=== PATIENT | male | born 1945 | race Caucasian/White ===

== ENCOUNTER → 2020-07-02 08:28 | Outpatient (BNVA) | payer MEDICARE, OTHER, SELFPAY | PROVIDERS: Family Provider Internal Medicine; PCP Internal Medicine; Referring Provider Nurse Practitioner; Visit Provider Orthopaedic Surgery | DX: M25.562 Pain in left knee (principal) | CPT/HCPCS: 73560; 73565 ==

== ENCOUNTER → 2020-07-25 08:38 | Outpatient (BNVA) | payer MEDICARE, OTHER, SELFPAY | PROVIDERS: Family Provider Internal Medicine; PCP Internal Medicine; Visit Provider Urology | DX: R39.11 Hesitancy of micturition (principal); R97.20 Elevated prostate specific antigen [PSA]; N40.1 Benign prostatic hyperplasia with lower urinary tract symptoms | CPT/HCPCS: 81003; 84153 ==

== ENCOUNTER → 2020-11-21 10:39 | Outpatient (BNVA) | payer MEDICARE, OTHER, SELFPAY | PROVIDERS: Family Provider Internal Medicine; PCP Nurse Practitioner; Visit Provider Urology | DX: R97.20 Elevated prostate specific antigen [PSA] (principal); N40.1 Benign prostatic hyperplasia with lower urinary tract symptoms | CPT/HCPCS: 81003; G0103 ==

== ENCOUNTER → 2021-11-28 09:07 | Outpatient (BNVA) | payer MEDICARE, OTHER, SELFPAY | PROVIDERS: Family Provider Internal Medicine; PCP Nurse Practitioner; Visit Provider Urology | DX: N40.1 Benign prostatic hyperplasia with lower urinary tract symptoms (principal); R97.20 Elevated prostate specific antigen [PSA]; N52.9 Male erectile dysfunction, unspecified; N48.1 Balanitis; N47.5 Adhesions of prepuce and glans penis | CPT/HCPCS: 51741; 51798; 81003; 84153; 99214 ==

== ENCOUNTER 2022-05-01 07:04 | Outpatient (CLI) | payer MEDICARE, OTHER, SELFPAY ==
[2022-05-01 08:07] LABS: Prostate Specific AG Urology 4.26 ng/mL (0-4)
== END 2022-05-01 07:05 | disposition home or self-care (01) ==
PROVIDERS: PCP Nurse Practitioner; Visit Provider Urology
DX: R97.20 Elevated prostate specific antigen [PSA] (principal); N40.1 Benign prostatic hyperplasia with lower urinary tract symptoms; N48.1 Balanitis; N47.5 Adhesions of prepuce and glans penis; N52.9 Male erectile dysfunction, unspecified
CPT/HCPCS: 51798; 81003; 84153; 99213

== ENCOUNTER → 2022-12-24 08:39 | Outpatient (BNVA) | payer MEDICARE, OTHER, SELFPAY | PROVIDERS: PCP Nurse Practitioner; Visit Provider Specialist | DX: M17.12 Unilateral primary osteoarthritis, left knee (principal) | CPT/HCPCS: 73560; 73565; 99204 ==

== ENCOUNTER 2023-01-05 15:06 | Outpatient (CLI) | payer MEDICARE, OTHER, SELFPAY ==
--- NOTE | 2023-01-05 15:30 | CT_ITS ---
WS: [id number] CT LEFT KNEE, NONCONTRAST TECHNIQUE: Noncontrast CT of the LEFT knee to include the LEFT hip and ankle. [facility] CLINICAL INFORMATION: left knee pain COMPARISON: None. DLP: 993.[address] scans at [facility] use at least one of these dose optimization techniques: automated e xposure control; mA and/or kV adjustment per patient size (includes targeted exams where dose is matc hed to clinical indication); or iterative reconstruction. FINDINGS: Prior postoperative changes RIGHT TKA. Advanced osteoarthritis LEFT knee with [id number] articulati on medial joint compartment. Small suprapatellar effusion. Hypertrophic patella. Hypertrophic changes along the joint line. Normal sigmoid colon. Sigmoid diverticulosis. Diffuse bladder wall thickening likely due to bladder outlet obstruction. Enlarged prostate measuring 5.3 CM. Recommend correlation P SA. Mild degenerative narrowing both hips. CT/CT knee LT [facility] IMPRESSION: Images obtained for preoperative purposes.
== END 2023-01-05 15:07 | disposition home or self-care (01) ==
LOC: RAD 15:14
PROVIDERS: PCP Nurse Practitioner; Visit Provider Specialist
DX: Z01.818 Encounter for other preprocedural examination (principal); M17.12 Unilateral primary osteoarthritis, left knee
CPT/HCPCS: 73700

== ENCOUNTER 2023-01-12 08:11 | Outpatient (CLI) | payer MEDICARE, OTHER, SELFPAY ==
[2023-01-12 08:43] LABS: Add Urine Microscopic? NO; Charge for UA Resulting for Rev
[2023-01-12 08:46] LABS: Basophils # 0.1 10^3/uL (0.0-0.1); Basophils % 0.9 %; Eosinophils # 0.2 10^3/uL (0.0-0.8); Eosinophils % 4.2 %; Hematocrit 39.6 % (42.0-52.0); Lymphocytes # 1.6 10^3/uL (0.8-4.8); Lymphocytes % 27.4 %; Mean Corpuscular HGB Conc 32.8 g/dL (30.0-36.0); Mean Corpuscular Hemoglobin 30.2 pg (28.0-34.0); Mean Corpuscular Volume 92.1 fl (80-94); Mean Platelet Volume 10.4 fL (7.4-10.4); Monocytes # 0.5 10^3/uL (0.2-0.9); Monocytes % 8.5 %; Neutrophils # 3.32 10^3/uL (1.8-7.7); Neutrophils % 58.6 %; Nucleated Red Blood Cells % 0 %; Platelet Count 208 10^3/cmm (130-400); Red Cell Distribution Width 14.4 % (12.1-15.1); White Blood Count 5.7 10^3/uL (4.0-10.0)
[2023-01-12 08:58] LABS: Bilirubin Urine Neg (Negative); Blood Urine Neg (Negative); Glucose Urine UA Norm (Normal); Ketones Urine Negative (Negative); Leukocyte Esterase Urine Negative (Negative); Nitrate Urine Negative (Negative); Protein Urine Neg (Negative); Urine Appearance Clear (CLEAR); Urine Color Yellow (Yellow); Urobilinogen Urine Norm (Negative); pH Urine 5 (5-7)
[2023-01-12 09:14] LABS: Alanine Aminotransferase 15 U/L (0-41); Albumin Level 3.7 g/dL (3.5-5.2); Alkaline Phosphatase 65 U/L (40-130); Anion Gap 14.2 (5-19); Aspartate Amino Transferase 17 U/L (0-40); Blood Urea Nitrogen 20 mg/dL (8-23); Calcium 8.6 mg/dL (8.5-10.5); Carbon Dioxide 24 mmol/L (22-29); Chloride 102 mmol/L (98-107); Globulin 2.6 g/dL (1.3-4.6); Glucose 153 mg/dL (65-115); Osmolality Calculated 288 mOsm/kg (285-295); Potassium 4.2 mmol/L (3.5-5.1); Sodium 136 mmol/L (136-145); Total Bilirubin 0.3 mg/dL (0.15-1.2); Total Protein 6.3 g/dL (6.6-8.7)
== END 2023-01-12 08:12 | disposition home or self-care (01) ==
PROVIDERS: Visit Provider Specialist
DX: M17.12 Unilateral primary osteoarthritis, left knee (principal)
CPT/HCPCS: 36415; 80053; 81003; 85025

== ENCOUNTER → 2023-01-14 14:08 | Outpatient (BNVA) | payer MEDICARE, OTHER, SELFPAY | PROVIDERS: Visit Provider Specialist | DX: M17.12 Unilateral primary osteoarthritis, left knee (principal) | CPT/HCPCS: 99213 ==

== ENCOUNTER 2023-01-26 09:54 | Observation (INO) | payer MEDICARE, OTHER, SELFPAY ==
[2023-01-26] VITALS (17 sets, daily range): BP systolic 97–161; BP diastolic 44–81; PULSE 55–88; RESP 10–17; TEMP 36.1–36.7; O2SAT 93–99
[2023-01-26] MEDS: acetaminophen 1,000 MG/100 ML PIGGYBACK 400 MG IV ×3 (06:28→22:47)
[2023-01-26] MEDS: CELEcoxib 200 mg Capsule 400 MG PO (06:28)
[2023-01-26] MEDS: gabapentin 300 mg Capsule PO (06:28)
[2023-01-26] MEDS: sodium chloride 0.9% 1,000 ML 30 ML IV (06:29)
--- NOTE | 2023-01-26 06:55 | W.PM.OPSUD ---
Surgery/Procedure H&P Update DATE OF PROCEDURE: January 26, 2023 DATE H&P PERFORMED: 01/21/23 H&P UPDATE INFORMATION: I have reviewed H&P completed within last 30 days, I have examined patient prior to procedure, No changes to prior documentation and H&P is in [facility] EMR on date indicated PLANNED PROCEDURE: Operation Date: 01/26/23 07:00 Proposed Procedures p LEFT TOTAL KNEE ARTHROPLASTY WITH STACY GUIDANCE 36699, M17.10(Left) - Helene Castillo MD Related Problem List Diagnoses (1) Primary osteoarthritis of left knee:
[2023-01-26] MEDS: ceFAZolin 2,000 MG in sodium chloride 0.9% (plus) 50 ML 100 MG IV ×3 (07:00→22:47)
--- NOTE | 2023-01-26 07:45 | ANES.PREANE2 ---
Pre-Anesthetic Assessment Height/Weight: Height 1.75 m Weight 87.09 kg Temp Pulse Resp BP Pulse Ox O2 Del Method 97.2 F L 55 L 16 141/81 98 Room Air 01/26/23 05:46 01/26/23 05:46 01/26/23 05:46 01/26/23 05:46 01/26/23 05:46 01/26/23 06:15 Operation Date: 01/26/23 07:00 Proposed Procedures p LEFT TOTAL KNEE ARTHROPLASTY WITH STACY GUIDANCE 68471, M17.10(Left) - Helene Castillo MD Familial anesthetic complications: none Was Beta Luba taken within 24 hours: N/A Was Clonidine taken within 24 hours: N/A Last intake: Intake Last Liquid Date 01/25/23 Last Liquid Time 21:00 Last Solid Date 01/25/23 Last Solid Time 19:00 Social No alcohol and No tobacco Exam alert, oriented x 3, clear to auscultation bilaterally and regular rate & rhythm Airway Submandibular: within normal limits Cervical ROM: within normal limits Mallampati: Class I Dentition: false Musc/skel Osteoarthritis/DJD Anesthetic Plan ASA status: 2 Anesthesia: General and Regional (specify below) (left adductor blk) Medications/Allergies Home Medications Medication Instructions Recorded Confirmed Last Taken Type aspirin 81 mg tablet,delayed 81 mg PO DAILY 07/02/20 01/26/23 01/14/23 History release multivitamin-ferrous 1 tab PO DAILY 07/02/20 01/26/23 01/21/23 History fumarate-folic acid 18 mg-400 mcg tablet (Centrum Complete) omega-3 fatty acids 1,000 mg 1,000 mg PO DAILY 07/02/20 01/26/23 01/21/23 History capsule (Fish Oil Concentrate) naproxen sodium 220 mg tablet 220 mg PO BID PRN Pain 07/25/20 01/21/23 01/20/23 History (Aleve) tadalafil 20 mg tablet 20 mg PO DAILY PRN sexual activity 05/10/21 01/26/23 Unknown Rx #20 tabs tamsulosin 0.4 mg capsule See Rx Instructions .Route 09/26/22 01/26/23 01/20/23 Rx .COMPLEX #180 caps Allergies Allergy/AdvReac Type Severity Reaction Status Date / Time No Known Allergies Allergy Verified 01/21/23 10:49 Current Medications Generic Name Dose Route Start Last Admin Trade Name Gill PRN Reason Stop Dose Admin Sodium Chloride 1,000 mls @ 30 mls/hr 01/26/23 06:00 01/26/23 06:29 Sodium Chloride 0.9% IV 01/27/23 05:59 30 mls/hr .Q24H CURTIS Administration PFSH Anesthesia Medical History BPH loc w urin obs/LUTS Elevated PSA Erectile dysfunction Family hx of prostate cancer Surgical History History of arthroscopy of knee right History of total knee replacement (TKR) right [address] Castillo Family History (Updated 01/21/23 @ 10:48 by Shon Dasilva NP) Mother , AT AGE 19 [place] Father , UNKNOWN No problems noted. Denies family history of Clotting disorder Anesthesia complication Bleeding disorder Social History (Updated 01/21/23 @ 10:48 by Shon Dasilva NP) Smoking and tobacco status: former smoker Quit status (tobacco): has quit using tobacco Former quit date comment: 30 yrs ago Alcohol intake: current Alcohol intake frequency: holidays/special occasions only Substance/Drug Use: never Marital status: Current occupational status: retired Data Anesthesia Cardiac Studies: No Data to Display Anesthesia Procedures Nerve Block Nerve Block 1: Main Anesthesia: general anesthesia Time Out Performed: Yes Consent: requested by attending/covering physician, from patient, risks and benefits reviewed and patient agrees to proceed Nerve block location: adductor canal (left) Anesthesia monitors applied: pulse oximetry, EKG, BP cuff and oxygen Nerve block position: supine Anesthetic Used: ropivicaine 0.5% Amount of anesthesia used (mL): 20 Ultrasound used to: recognize landmarks Nerve Stimulator Used?: No Interscalene/Femoral BLK: 4 stimuplex 21 g needle used for position and inplane approach Injection: neg aspiration of heme Patient Tolerated Procedure: well Complications: none
[2023-01-26] MEDS: ceFAZolin 1,000 mg SDV 2000 MG IRRIGATION (07:51)
[2023-01-26] MEDS: vancomycin 1,000 MG SDV 1000 MG XX (07:52)
--- NOTE | 2023-01-26 10:07 | PM.OP ---
Operative Report Date of procedure: January 26, 2023 Pre-op diagnosis: Primary osteoarthritis left knee Post-op diagnosis: same Post-op diagnosis: Primary osteoarthritis left knee Post-op findings: Severe degenerative osteoarthritis of the left knee with osteophytes and complete denudement of cartilage. Procedure done: Left total knee arthroplasty with Rober guidance Implants: The Heriberto total knee system with a size 6 triathlon beaded cruciate retaining femur left, a triathlon titanium tibial component size 6 beaded, a triathlon X3 tibial bearing CS insert size 6 X 11 mm and a beaded triathlon titanium asymmetric patella size 38 x 11 mm Pathology: none sent Surgeon: Helene Castillo Tank Maker Wood: [facility] operating room technicians Anesthesia: General (Intubated, ASA 2) Estimated blood loss (mL): 100 Tourniquet time (min): 0 (No tourniquet) IV fluids (mL): 1,500 Urine output (mL): 100 Complications: None Findings: Severe degenerative osteoarthritis left knee with varus deformity Condition: stable Disposition: PACU (Then to floor for postoperative rehabilitation and pain management) Brief History: Ramses Patino is a 77-year-old gentleman who previously underwent right total knee arthroplasty by me in June 2016. He presented to the clinic complaining of limitations in activities of daily living and severe left knee pain. After discussion, the patient wished to proceed with left total knee arthroplasty. Patient states that his left knee has been bothering him for several years.? Patient rated his pain at 5/10 in clinic. Patient states that pain inhibits him from being able to walk long distances or ambulating stairs freely. Procedure: The patient was brought to the operating theater, and after undergoing general anesthesia, intubated, ASA 2, as well as an adductor canal block, the left lower extremity was prepped with Dura-Prep and draped in usual fashion following placement of a tourniquet high on the leg. The leg was then draped free.? Tourniquet was not elevated during the case.? A surgical pause was performed, and at the time of the surgical pause, we confirmed the site and side of surgery. Additionally, we confirmed the appropriate and timely administration of preoperative antibiotics, Ancef 2 g and Transexemic acid 1 g.? The availability of equipment was confirmed, and the patient's identity was verbalized as well.? An additional transexemic acid 1 g will be given on the floor as well. Following the surgical pause, an incision was made centering over the patella continuing proximally and distally as necessary to allow access to the knee joint. Dissection continued through skin and soft tissues using a scalpel. Hemostasis was obtained using electrocautery. The skin incision was followed by a median parapatellar arthrotomy. The leg was extended and the patella was able to be displaced laterally.? Appropriate arrays and markers were placed in appropriate position for use of the Rober.? Preoperative planning had been accomplished and was discussed in detail with the [facility] loss control representative.? Intraoperative mapping of the femur and tibia was accomplished after the arrays were placed.? Internal markers were also placed.? Once we had accomplished the Rober mapping, we began the appropriate resections for placement of the prosthesis.? The plan was for a cruciate retaining right total knee arthroplasty. Once appropriate mapping had been accomplished, retraction was established using manual retraction by surgical technicians and also the Rober leg positioner and retractors.? The knee was evaluated.? There was significant osteoarthritic change with significant osteophyte formation a significant varus deformity.? Appropriate bone resection was accomplished using the Rober.? The femur was sized to a size 6.? Following femoral cuts, attention was directed to the tibia.? Osteophytes were removed prior to this portion of the procedure.? We had performed a medial release at the beginning of the procedure to allow for placement of the array and to allow for better planning with flexion and extension adjustments per Rober programming.? Proximal tibia was evaluated, and it was felt that appropriate size for the tibia was a size 6.? Tray was noted to fit nicely with good coverage.? Rim fit was accomplished with the size 6. A trial reduction was accomplished after osteophytes have been removed as well as the medial and lateral menisci.? We had removed the anterior cruciate ligament at the beginning of the case and preserved the posterior cruciate ligament.? Trial reduction was accomplished with a size 6 femoral cruciate retaining component and a size 6 CS tibial bearing insert which was 9 mm in thickness initially with subsequent trial implant increased to a size 10 mm.? Final insert was an 11 mm implant.? Alignment was felt to be appropriate as well.? Trial components were removed after the femur had been drilled.? Prior to removal of the tibial tray which had been pinned in position with appropriate rotation as determined by the Rober plan, we broached the tibia.? Subsequently, the 4 drill holes were made for the prosthetic component.? All trial components were removed, and the wound was irrigated.? Plans were made for insertion of the prosthetic components.? Prior to this, the patella was manually prepared.? After resection of the articular surface with the jogging system, it was measured and measured a 38 mm patella.? We resected approximately 11 mm of patella.? Patellar height was restored with the patellar component. Once again, the wound was irrigated.? The Tritanium tibia was impacted into position.? The beaded femur was then impacted into position in a cementless fashion. The CS tibial insert was placed prior to placement of the femoral component. The patella was pressed into position with a patellar clamp.? Exparel was injected about the components deep and superficially.? The knee was then copiously irrigated with betadine and saline and suctioned dry. Attention was then directed to closure. Closure was accomplished with 0 Vicryl in the fascial tissues.? This was followed by Surgiflo and vancomycin powder.? Following this, a 2-0 Monocryl was used in the subcutaneous tissues, and the skin was closed with skin rashaun.? Care was taken to assure an excellent subcutaneous as well as skin closure.? A sterile dressing was then placed consisting of Dermabond Prineo, OpSite, sterile soft roll including over the foot, and an Gerry wrap. The patient was returned the Recovery Room in a satisfactory condition. X-rays were obtained and reviewed there.? The patient will be discharged to the floor for postoperative rehabilitation and pain management. Related Problem List Diagnoses (1) Primary osteoarthritis of left knee:
--- NOTE | 2023-01-26 10:22 | XRR_ITS ---
PROCEDURE INFORMATION: Exam: XR Left Knee Exam date and time: 01/26/2023 10:24 AM Age: 77 years old Clinical indication: Device placement; Joint replacement hardware; Prior surgery; Surgery date: Post-operative (0-2 days); Surgery type: Status post left total knee arthroplasty TECHNIQUE: Imaging protocol: Radiologic exam of the left knee. Views: 1 or 2 views. COMPARISON: CT knee LT STACY 01/05/2023 3:30 PM FINDINGS: Bones/joints: The patient has had a left total knee arthroplasty with no adverse findings. Soft tissues: Postoperative soft tissue changes are seen including multiple anterior skin rashaun. XR/XR knee LT 1-2V 17675 IMPRESSION: Normal appearing postoperative left total knee arthroplasty.
[2023-01-26] MEDS: oxyCODONE 5 mg IR Tab/Cap PO (11:13)
--- NOTE | 2023-01-26 12:45 | ANE.PACU2 ---
Inpatient post-anesthesia follow up: Airway intact: Yes Vital signs: Temperature 97.0 F Pulse Rate 72 Respiratory Rate 16 Blood Pressure 148/63 Pulse Oximetry 96 Oxygen Delivery Me thod Room Air Oxygen Flow Rate Fraction of Inspir ed Oxygen Hydration adequate: Yes Nausea and vomiting: No Pain level: 3 Mental status: Baseline
[2023-01-26] MEDS: chlorhexidine gluconate 0.12% Btl 473 mL 30 ML MUCOUS MEM ×3 (13:10→20:18)
[2023-01-26] MEDS: sennosides-docusate Tablet 2 TAB PO (17:39)
[2023-01-26] MEDS: iron polysaccharide complex 150 mg Capsule PO (17:39)
[2023-01-26] MEDS: calcium carbonate 500 mg Chew Tablet 1000 MG PO (17:39)
[2023-01-26] MEDS: CELEcoxib 200 mg Capsule PO (17:40)
[2023-01-26] MEDS: mupirocin oint 22 gm 1 APPLIC NASAL (17:40)
[2023-01-27] VITALS (7 sets, daily range): BP systolic 100–131; BP diastolic 54–76; PULSE 61–72; RESP 16–18; TEMP 36.5–36.9; O2SAT 95–98
[2023-01-27] MEDS: oxyCODONE 5 mg IR Tab/Cap PO ×3 (04:42→12:32)
[2023-01-27 05:00] LABS: Basophils % 0.2 %; Eosinophils # 0.1 10^3/uL (0.0-0.8); Eosinophils % 0.5 %; Hematocrit 35.3 % (42.0-52.0); Hemoglobin 11.2 g/dL (11.7-16.6); Lymphocytes # 1.7 10^3/uL (0.8-4.8); Lymphocytes % 13.1 %; Mean Corpuscular HGB Conc 31.7 g/dL (30.0-36.0); Mean Corpuscular Hemoglobin 30.1 pg (28.0-34.0); Mean Corpuscular Volume 94.9 fl (80-94); Mean Platelet Volume 10.4 fL (7.4-10.4); Monocytes # 1.3 10^3/uL (0.2-0.9); Monocytes % 9.9 %; Neutrophils # 9.72 10^3/uL (1.8-7.7); Nucleated Red Blood Cells % 0 %; Platelet Count 216 10^3/cmm (130-400); Red Blood Count 3.72 10^6/uL (4.1-5.3); Red Cell Distribution Width 14.4 % (12.1-15.1); White Blood Count 12.8 10^3/uL (4.0-10.0)
[2023-01-27 05:24] LABS: Anion Gap 12.4 (5-19); Blood Urea Nitrogen 16 mg/dL (8-23); Calcium 8.5 mg/dL (8.5-10.5); Carbon Dioxide 26 mmol/L (22-29); Chloride 104 mmol/L (98-107); Glucose 119 mg/dL (65-115); Osmolality Calculated 288 mOsm/kg (285-295); Potassium 4.4 mmol/L (3.5-5.1); Sodium 138 mmol/L (136-145)
[2023-01-27] MEDS: acetaminophen 1,000 MG/100 ML PIGGYBACK 400 MG IV (06:00)
[2023-01-27] MEDS: ceFAZolin 2,000 MG in sodium chloride 0.9% (plus) 50 ML 100 MG IV (06:00)
[2023-01-27] MEDS: CELEcoxib 200 mg Capsule PO (06:01)
[2023-01-27] MEDS: chlorhexidine gluconate 0.12% Btl 473 mL 30 ML MUCOUS MEM ×2 (08:21→13:50)
[2023-01-27] MEDS: mupirocin oint 22 gm 1 APPLIC NASAL (08:21)
[2023-01-27] MEDS: tamsulosin 0.4 mg Capsule 0.8 MG PO (08:22)
[2023-01-27] MEDS: aspirin 325 mg EC Tablet PO (08:22)
[2023-01-27] MEDS: calcium carbonate 500 mg Chew Tablet 1000 MG PO (08:22)
[2023-01-27] MEDS: cholecalciferol (vitamin D3) 1,000 unit Tablet 1000 UNIT PO (08:22)
[2023-01-27] MEDS: multivitamin therapeutic Tablet 1 TAB PO (08:22)
[2023-01-27] MEDS: sennosides-docusate Tablet 2 TAB PO (08:22)
[2023-01-27] MEDS: iron polysaccharide complex 150 mg Capsule PO (08:32)
--- NOTE | 2023-01-27 09:44 | PC.CHAP ---
Pastoral Care Encounter/Spiritual Assessment Type of Contact [] Declined solar pool heating installer visit [] Patient/Family/Request visit [] Outpatient visit [] Follow-up visit [] Physician referral [] Code/Alert [x] Routine visit [] Staff referral [] Actively dying [] Patient sleeping [] Family support [] [] Out of room [] Palliative care [] [] Receiving care in room [] Pre-surgical visit [] Trauma [] Long length of stay [] ICU visit [] Other: Relational/Emotional Strength [] Patient feels connected with others/family/visitors/staff [x] Distress [] Loneliness/isolation [] Abandonment Spirituality of Patient [] Person of Samara [] Attends Congregational of their Samara [] Believes in Prayer [] Reads Bible or Evangelical materials [x] There are Spiritual issues to be addressed Food And Nutrition Services Supervisor Interventions [] Prayer [x] Active listening [] Non-anxious presence [] Spiritual/emotional support [] Crisis/trauma care [] Spiritual counseling [] Bereavement support [] Provided bereavement packet [] Provided Bible/devotional materials [] Provided toy/stuffed animal, coloring book to patient or family member [] Provided Communion [] Anointing/[place] [] Salvation [x] Completed spiritual assessment [] Other: Impact on Illness or Injury [] Angry [] Fearful [] Anxious [] Often cries [] Exhaustion [] Unable to work [] Unable to attend evangelical [] Unable to walk/stand [] Unable to read [] Unable to drive [] Unable to eat/drink [] Unable to sleep [] Unable to be with family [] Patient intubated [] Other: Summary Time spent with patient 5 min
--- NOTE | 2023-01-27 13:32 | PM.DCS ---
Discharge Providers Date of Admission: 01/26/23 09:54 Date of Discharge: January 27, 2023 Attending Provider at Admission: Helene Castillo MD Attending Provider at Discharge: Helene Castillo MD Diagnoses at Discharge Discharge Diagnosis (1) Status post total left knee replacement not using cement: Status: Acute Permanent problem details: Date of procedure: January 26, 2023 Diagnosis: Primary osteoarthritis left knee Procedure done: Left total knee arthroplasty with Rober guidance Implants: The Kemp total knee system with a size 6 triathlon beaded cruciate retaining femur left, a triathlon titanium tibial component size 6 beaded, a triathlon X3 tibial bearing CS insert size 6 X 11 mm and a beaded triathlon titanium asymmetric patella size 38 x 11 mm (2) Primary osteoarthritis of left knee: Status: Acute Reason for Visit Reason for Visit: M17.10 Brief History: Ramses Patino is a 77-year-old gentleman who previously underwent right total knee arthroplasty by me in June 2016.? He presented to the clinic complaining of limitations in activities of daily living and severe left knee pain.? After discussion, the patient wished to proceed with left total knee arthroplasty.? Patient states that his left knee has been bothering him for several years.? Patient rated his pain at 5/10 in clinic. Patient states that pain inhibits him from being able to walk long distances or ambulating stairs freely. Hospital Course Hospital Course This 77-year-old gentleman was admitted under observation status following same-day surgery for Rober assisted left total knee arthroplasty. He had previously undergone right total knee arthroplasty and had done well with this. He presented on this occasion to address the left knee osteoarthritic change and its impact on his activities of daily living. The patient was brought to the hospital and underwent same-day surgery as noted. This was uneventful and he was admitted to the floor postoperatively. He was doing well postoperatively and worked with physical therapy. There were no complications. His dressing remained dry and intact, but the large outer dressing was removed. There was no evidence of DVT. There is no significant ecchymosis. The patient was felt ready and safe for discharge to home, therefore, he was discharged home on the first postoperative day. Physical Exam Const: COMMON NORMALS: no acute distress, average body habitus, patient oriented x3 and alert GENERAL APPEARANCE: cooperative and comfortable ORIENTATION/CONSCIOUSNESS: Yes awake HENMT: COMMON NORMALS: normocephalic and atraumatic HEAD & SCALP: normocephalic and atraumatic Eye: GENERAL EYE: appearance normal, both eyes and all related structures Chest: COMMONS NORMALS: normal inspection of the chest Resp: COMMON NORMALS: normal respiratory effort EFFORT & INSPECTION: Yes able to speak in complete sentences and Yes symmetric chest movement Extremity: LEFT LOWER EXTREMITY: Yes knee joint (Large outer dressing is removed. OpSite is dry and intact) Left knee: Yes inspection (No significant ecchymosis or swelling), Yes palpation (Minimal discomfort), Yes ROM (Not evaluated) and Yes neurovascular exam (Intact distally with no evidence of DVT) Neuro: COMMON NORMALS: patient oriented x3 SENSORIUM/ORIENTATION: Yes alert Psych: COMMON NORMALS: mental status grossly normal APPEARANCE: Yes grossly normal ATTITUDE: Yes calm and Yes engaged ATTENTION/CONCENTRATION: Yes attention grossly intact Skin: COMMON NORMALS: no rashes or lesions noted GENERAL SKIN EXAM: no rashes or lesions noted Urinary Catheter Management: Soriano: Cath Placed During This Visit: yes, but has since been removed by the nurse Reason for Continuing Indwelling Catheter: Decision to DC Catheter Urinary Catheter Date of Insertion: 01/26/23 Urinary Catheter Time of Insertion: 07:12 Date Urinary Catheter Removed: 01/27/23 Time Urinary Catheter Discontinued: 04:51 Discharge Data Studies Completed and Pending Completed Studies During Hospitalization Category Date Time Status XR knee LT 1-2V 65295 Routine Exams 01/26/23 10:22 Completed Radiology Impressions Knee X-Ray 01/26/23 10:22 IMPRESSION: Normal appearing postoperative left total knee arthroplasty. Laboratory Results WBC 12.8 10^3/uL (4.0-10.0) H 01/27/23 04:54 RBC 3.72 10^6/uL (4.1-5.3) L 01/27/23 04:54 Hgb 11.2 g/dL (11.7-16.6) L 01/27/23 04:54 Hct 35.3 % (42.0-52.0) L 01/27/23 04:54 MCV 94.9 fl (80-94) H 01/27/23 04:54 MCH 30.1 pg (28.0-34.0) 01/27/23 04:54 MCHC 31.7 g/dL (30.0-36.0) 01/27/23 04:54 RDW 14.4 % (12.1-15.1) 01/27/23 04:54 Plt Count 216 10^3/cmm (130-400) 01/27/23 04:54 MPV 10.4 fL (7.4-10.4) 01/27/23 04:54 Neut % (Auto) 76.0 % 01/27/23 04:54 Lymph % (Auto) 13.1 % 01/27/23 04:54 [place] % (Auto) 9.9 % 01/27/23 04:54 Eos % (Auto) 0.5 % 01/27/23 04:54 Baso % (Auto) 0.2 % 01/27/23 04:54 Neut # (Auto) 9.72 10^3/uL (1.8-7.7) H 01/27/23 04:54 Lymph # (Auto) 1.7 10^3/uL (0.8-4.8) 01/27/23 04:54 [place] # (Auto) 1.3 10^3/uL (0.2-0.9) H 01/27/23 04:54 Eos # (Auto) 0.1 10^3/uL (0.0-0.8) 01/27/23 04:54 Baso # (Auto) 0.0 10^3/uL (0.0-0.1) 01/27/23 04:54 Nucleated RBC % (auto) 0 % 01/27/23 04:54 Nucleated RBCs # 0.0 /100WBC 01/27/23 04:54 Sodium 138 mmol/L (136-145) 01/27/23 04:54 Potassium 4.4 mmol/L (3.5-5.1) 01/27/23 04:54 Chloride 104 mmol/L (98-107) 01/27/23 04:54 Carbon Dioxide 26 mmol/L (22-29) 01/27/23 04:54 Anion Gap 12.4 (5-19) 01/27/23 04:54 BUN 16 mg/dL (8-23) 01/27/23 04:54 Creatinine 1.5 mg/dL (0.7-1.2) H 01/27/23 04:54 GFR Calculation Not Reportable 01/27/23 04:54 Glucose 119 mg/dL (65-115) H 01/27/23 04:54 Calculated Osmolality 288 mOsm/kg (285-295) 01/27/23 04:54 Calcium 8.5 mg/dL (8.5-10.5) 01/27/23 04:54 Vitals Last Vital Signs Temp 97.7 F 01/27/23 12:14 Pulse 72 01/27/23 12:14 Resp 16 01/27/23 12:32 BP 131/76 01/27/23 12:14 Pulse Ox 95 01/27/23 12:14 O2 Del Method Room Air 01/27/23 12:14 O2 Flow Rate 2 01/26/23 12:49 Discharge Plan Discharge Patient Disposition: Home Health Service Condition: Stable Prescriptions: New celecoxib 200 mg Capsule 200 mg PO Q12H 30 Days Qty: 60 0RF acetaminophen 500 mg Tablet 1,000 mg PO Q8H 15 Days Qty: 90 0RF aspirin 325 mg Tablet,Delayed Release (Dr/Ec) 325 mg PO DAILY 30 Days Qty: 30 0RF oxycodone 5 mg Tablet 5 mg PO Q4H PRN (Reason: Moderate Pain) 7 Days Qty: 30 0RF Continued Centrum Complete 18-400 mg-mcg tablet 1 tab PO DAILY tadalafil 20 mg tablet 20 mg PO DAILY PRN (Reason: sexual activity) Qty: 20 12RF Rx Instructions: administer approximately 30min before sexual activity; NO NITROGLYCERIN! tamsulosin 0.4 mg capsule See Rx Instructions .ROUTE .COMPLEX Qty: 180 3RF Dose Instruction: TAKE 2 CAPSULES BY MOUTH AT BEDTIME Rx Instructions: TAKE 2 CAPSULES BY MOUTH AT BEDTIME Fish Oil 300-1,000 mg Capsule 1 cap PO DAILY No Action naproxen sodium [Aleve] 220 mg tablet 220 mg PO BID PRN (Reason: Pain) aspirin 81 mg tablet,delayed release (DR/EC) 81 mg PO DAILY Discharge Orders: Discharge Order (Routine); Ordered 01/27/23 Ordered By: Helene Castillo Referrals: [facility] [place] Home Care ([facility]) [Outside] Kade Albert MD [Physician] - 02/03/23 2:30 pm Helene Castillo MD [Physician] - 02/09/23 9:15 am Discharge Diet: Advance as tolerated and Usual diet Discharge Activity: Increase activity as tolerated, Use walker/crutches as instructed and As per PT/OT instructions Patient Instructions: Aspirin (By mouth), Oxycodone, Rapid Release (By mouth), Celecoxib (By mouth), Total Knee Replacement (GEN), Joint Replacement Stoplight, Opioid Safety Activity Restrictions/Additional Instructions: Ice and elevation to left lower extremity. You may shower, but do not submerge your knee in water. Keep clear plastic dressing in place until it comes off on its own. Range of motion, strengthening, and gait training per physical therapy. Discharge Attestations Time Spent in Discharge Care*: greater than 30 min Specific Discharge Activities: educating patient, documenting/other paperwork and evaluating patient/reviewing data Quality Metrics Clinical Quality Measures [ No reported AMI, CVA or VTE this stay] Coding Level of Care Code Acute Code for Chg Fwd Diagnoses Status post total left knee replacement not using cement Z96.652 Primary osteoarthritis of left knee M17.12
[2023-01-27] MEDS: acetaminophen 500 mg Tablet 1000 MG PO (14:19)
== END 2023-01-27 16:50 | disposition home health service (06) | DRG 470 ==
LOC: MEDSURG 14:17
PROVIDERS: Admitting Provider Specialist; Visit Provider Specialist
PROC: 8E0Y0CZ Robotic Assisted Procedure of Lower Extremity, Open Approach (ICD-10-PCS; CPT 27447; principal; 2023-01-26 07:00)
DX: M17.12 Unilateral primary osteoarthritis, left knee (principal); N40.1 Benign prostatic hyperplasia with lower urinary tract symptoms; N13.8 Other obstructive and reflux uropathy; Z80.42 Family history of malignant neoplasm of prostate; Z87.891 Personal history of nicotine dependence
CPT/HCPCS: 20985; 27447; 36415; 51702; 73560; 80048; 85025; 97110; 97116; 97161; 97165; 97530; C1776; C9290; G0378; J0131; J0690; J1100; J1170; J2371; J2405; J2704; J2795; J3010; J3370; J3490; J7030

== ENCOUNTER → 2023-02-09 09:22 | Outpatient (BNVA) | payer MEDICARE, OTHER, SELFPAY | PROVIDERS: Visit Provider Nurse Practitioner Family | DX: Z96.652 Presence of left artificial knee joint (principal) | CPT/HCPCS: 73560; 73565; 99024 ==

== ENCOUNTER 2023-02-24 13:58 | Outpatient (RCR) | payer MEDICARE, OTHER, SELFPAY | END 2023-02-26 23:59 | disposition home or self-care (01) | LOC: SPT 13:58 | PROVIDERS: PCP Family Medicine Adult Medicine; Visit Provider Specialist | DX: Z47.1 Aftercare following joint replacement surgery (principal); Z96.652 Presence of left artificial knee joint | CPT/HCPCS: 97110; 97161 ==

== ENCOUNTER 2023-02-27 06:00 | Outpatient (RCR) | payer MEDICARE, OTHER, SELFPAY | END 2023-03-20 23:59 | disposition home or self-care (01) | LOC: SPT 06:00 | PROVIDERS: PCP Family Medicine Adult Medicine; Visit Provider Specialist | DX: Z47.1 Aftercare following joint replacement surgery (principal); Z96.652 Presence of left artificial knee joint | CPT/HCPCS: 97110; 97140 ==

== ENCOUNTER → 2023-03-10 08:02 | Outpatient (BNVA) | payer MEDICARE, OTHER, SELFPAY | PROVIDERS: PCP Family Medicine Adult Medicine; Visit Provider Nurse Practitioner Family | DX: Z96.652 Presence of left artificial knee joint (principal) | CPT/HCPCS: 73560; 73565; 99213 ==

== ENCOUNTER → 2023-06-10 08:11 | Outpatient (BNVA) | payer MEDICARE, OTHER, SELFPAY | PROVIDERS: PCP Family Medicine Adult Medicine; Visit Provider Nurse Practitioner | DX: Z96.652 Presence of left artificial knee joint (principal); M17.12 Unilateral primary osteoarthritis, left knee | CPT/HCPCS: 73560; 73565; 99214 ==

== ENCOUNTER → 2023-10-02 14:01 | Outpatient (BNVA) | payer OTHER, SELFPAY | PROVIDERS: PCP Family Medicine Adult Medicine; Visit Provider Family Medicine Adult Medicine | DX: R06.81 Apnea, not elsewhere classified (principal); E78.00 Pure hypercholesterolemia, unspecified; R97.20 Elevated prostate specific antigen [PSA]; N40.1 Benign prostatic hyperplasia with lower urinary tract symptoms | CPT/HCPCS: 71046; 80053; 84443; 85025; G0103 ==

== ENCOUNTER → 2024-01-27 08:34 | Outpatient (BNVA) | payer MEDICARE, OTHER, SELFPAY | PROVIDERS: PCP Family Medicine Adult Medicine; Visit Provider Nurse Practitioner | DX: Z96.652 Presence of left artificial knee joint (principal); M17.12 Unilateral primary osteoarthritis, left knee | CPT/HCPCS: 73560; 73565; 99213 ==

== ENCOUNTER 2024-11-01 09:09 | Outpatient (CLI) | payer MEDICARE, OTHER, SELFPAY ==
--- NOTE | 2024-11-01 09:13 | XR_ITS ---
WS: [id number] XR lumbar spine 2-3V* [id number] REASON FOR EXAM: lower back pain FINDINGS: Moderate rotatory levoscoliosis with straightening of the normal lordosis. Mild biconcave compression deformities L1-L5. Moderate vertebral body osteophytosis L1-L5. Mild narrowing of the L1-L2 disc space with moderate narrowing at L2-L3 L3-L4 and L4-L5. Severe narrowing of the disc space at L5-S1 with vacuum phenomena. 5 to 6 mm of anterolisthesis of L3 in relation to L2. Mild degenerative hypertrophic arthropathy in the facet joints L3-S1. XR/XR lumbar spine 2-3V* [id number] IMPRESSION: Multiple chronic compression deformities with moderate degenerative spondylosis and lumbar curvature alteration as above.
== END 2024-11-01 09:10 | disposition home or self-care (01) ==
LOC: RAD 09:11
PROVIDERS: PCP Family Medicine; Visit Provider Family Medicine
DX: M47.897 Other spondylosis, lumbosacral region (principal); G89.29 Other chronic pain; M41.86 Other forms of scoliosis, lumbar region; S32.010D Wedge compression fracture of first lumbar vertebra, subsequent encounter for fracture with routine healing; S32.020D Wedge compression fracture of second lumbar vertebra, subsequent encounter for fracture with routine healing; S32.030D Wedge compression fracture of third lumbar vertebra, subsequent encounter for fracture with routine healing; S32.040D Wedge compression fracture of fourth lumbar vertebra, subsequent encounter for fracture with routine healing; S32.050D Wedge compression fracture of fifth lumbar vertebra, subsequent encounter for fracture with routine healing; X58.XXXD Exposure to other specified factors, subsequent encounter; M25.78 Osteophyte, vertebrae; M51.369 Other intervertebral disc degeneration, lumbar region without mention of lumbar back pain or lower extremity pain; M51.379 Other intervertebral disc degeneration, lumbosacral region without mention of lumbar back pain or lower extremity pain; M43.16 Spondylolisthesis, lumbar region; I10 Essential (primary) hypertension; N40.1 Benign prostatic hyperplasia with lower urinary tract symptoms; Z12.5 Encounter for screening for malignant neoplasm of prostate; N18.31 Chronic kidney disease, stage 3a
CPT/HCPCS: 72100; 80053; 80061; 81000; 82043; 84153; 84439; 84443; 85025

== ENCOUNTER 2024-12-14 08:13 | Outpatient (RCR) | payer MEDICARE, OTHER, SELFPAY | END 2024-12-26 23:59 | disposition home or self-care (01) | LOC: SPT 08:13 | PROVIDERS: PCP Family Medicine; Visit Provider Family Medicine | DX: M54.50 Low back pain, unspecified (principal); G89.29 Other chronic pain | CPT/HCPCS: 97110; 97161; 97530 ==

== ENCOUNTER 2024-12-27 05:00 | Outpatient (RCR) | payer MEDICARE, OTHER, SELFPAY | END 2025-01-26 23:59 | disposition home or self-care (01) | LOC: SPT 05:00 | PROVIDERS: PCP Family Medicine; Visit Provider Family Medicine | DX: M54.50 Low back pain, unspecified (principal); G89.29 Other chronic pain | CPT/HCPCS: 97110; 97530 ==

== ENCOUNTER 2025-01-27 05:00 | Outpatient (RCR) | payer MEDICARE, OTHER, SELFPAY | END 2025-02-22 11:17 | disposition home or self-care (01) | LOC: SPT 05:00 | PROVIDERS: PCP Family Medicine; Visit Provider Family Medicine | DX: M54.50 Low back pain, unspecified (principal); G89.29 Other chronic pain | CPT/HCPCS: 97110; 97530 ==

== ENCOUNTER → 2025-02-03 08:35 | Outpatient (BNVA) | payer MEDICARE, OTHER, SELFPAY | PROVIDERS: PCP Family Medicine; Visit Provider Nurse Practitioner | DX: Z96.652 Presence of left artificial knee joint (principal) | CPT/HCPCS: 73560; 73565; 99214 ==